=== PATIENT | female | born 1945 | race Caucasian/White ===

== ENCOUNTER 2018-02-03 06:55 | Day surgery (SDC) | payer MEDICARE, OTHER, MEDICAID ==
[2018-02-03] MEDS ORDERED: LIDOCAINE 2% (SDV) 5 ML INJ (08:45)
[2018-02-03] MEDS ORDERED: PROPOFOL 60 ML (08:45)
== END 2018-02-03 11:41 | disposition home or self-care (01) ==
LOC: GIL 06:55
DX: R19.4 Change in bowel habit (principal); K64.8 Other hemorrhoids; K44.9 Diaphragmatic hernia without obstruction or gangrene; K29.70 Gastritis, unspecified, without bleeding
CPT/HCPCS: 43239; 82962; 88305; 88312